=== PATIENT | female | born 1925 | race Caucasian/White ===

== ENCOUNTER 2016-07-09 18:23 | Emergency (ER) | payer MEDICARE, OTHER ==
[~2016-07-09] VITALS: Ht 167.6 cm; Wt 73.9 kg
[~2016-07-09 18:23] MED LIST: AMIO200T PO; ASPI-496 PO; CALC1CAP8 PO; CARV6.2512 PO; DIGO125T6 PO; FURO-92 PO; FURO20TA3 PO; LISI5TAB7 PO; LORA10TA72 PO; MELO-184 PO; MELO-190 PO; POLY17PO5 PO; SIMV20TA3 PO
[2016-07-09] MEDS ORDERED: SODIUM CHLORIDE FLUSH 10ML SYR IVF ONE (19:00)
[2016-07-09 19:16] LABS: HEMOGLOBIN 14.2 g/dL (11.7-16.4)
[2016-07-09] MEDS ORDERED: AMIO200T42 PO (19:22)
[2016-07-09] MEDS ORDERED: ASPI-650 PO (19:22)
[2016-07-09] MEDS ORDERED: IBUP200C8 PO (19:22)
[2016-07-09 19:26] LABS: BLOOD UREA NITROGEN 17 mg/dL (7-18)
[2016-07-09 19:28] LABS: ASPARTATE AMINO TRANSFERASE 45 U/L (15-37)
[2016-07-09 20:11] VITALS: BP 109/62
== END 2016-07-09 21:35 | disposition home or self-care (01) ==
LOC: ED 19:21
DX: S83.511A Sprain of anterior cruciate ligament of right knee, initial encounter (principal); M19.90 Unspecified osteoarthritis, unspecified site; I10 Essential (primary) hypertension; E78.5 Hyperlipidemia, unspecified; I48.0 Paroxysmal atrial fibrillation; I25.10 Atherosclerotic heart disease of native coronary artery without angina pectoris; Z86.718 Personal history of other venous thrombosis and embolism; X50.1XXA Overexertion from prolonged static or awkward postures, initial encounter; Y93.89 Activity, other specified; Y99.8 Other external cause status; Y92.89 Other specified places as the place of occurrence of the external cause
CPT/HCPCS: 36415; 80053; 85025; 85610; 99285

== ENCOUNTER 2016-12-01 10:18 | Emergency (ER) | payer MEDICARE, OTHER ==
[~2016-12-01] VITALS: Ht 160 cm; Wt 68.3 kg
[~2016-12-01 10:18] MED LIST changes: +AMIO200T42 PO; +ASPI-650 PO; +IBUP200C8 PO; -MELO-184 PO; -MELO-190 PO; +MELO15TA24 PO; +MELO7.5T31 PO
[2016-12-01 11:17] LABS: HEMATOCRIT 42.2 % (34.6-47.8); HEMOGLOBIN 13.7 g/dL (11.7-16.4); WHITE BLOOD COUNT 11.3 x10^3/uL (3.4-10)
[2016-12-01 11:26] LABS: ASPARTATE AMINO TRANSFERASE 25 U/L (15-37); BLOOD UREA NITROGEN 23 mg/dL (7-18)
[2016-12-01] MEDS ORDERED: TRAM50TA2 PO (12:07)
[2016-12-01] MEDS ORDERED: FEXO180T72 PO (12:08)
[2016-12-01] MEDS ORDERED: FEXO1TAB29 PO (12:08)
[2016-12-01] MEDS ORDERED: NAPR220C2 PO (12:09)
[2016-12-01 14:30] VITALS: BP 178/86
== END 2016-12-01 14:34 | disposition home or self-care (01) ==
LOC: ED 10:57
DX: R42 Dizziness and giddiness (principal); W01.0XXA Fall on same level from slipping, tripping and stumbling without subsequent striking against object, initial encounter; Y93.89 Activity, other specified; Y92.89 Other specified places as the place of occurrence of the external cause; Y99.8 Other external cause status
CPT/HCPCS: 36415; 70450; 80053; 81003; 82550; 83735; 85025; 93005; 99285

== ENCOUNTER 2017-01-02 08:52 | Inpatient (IN) | payer MEDICARE, OTHER ==
[~2017-01-02] VITALS: Ht 160 cm; Wt 72.5 kg
[~2017-01-02 08:52] MED LIST changes: +FEXO180T72 PO; +FEXO1TAB29 PO; +NAPR220C2 PO; +TRAM50TA2 PO
[2017-01-02] MEDS ORDERED: DILTIAZEM 125 MG in DEXTROSE 5% 100 ML IV SCH (09:13)
[2017-01-02] MEDS ORDERED: ERYT250C8 PO (09:25)
[2017-01-02] MEDS ORDERED: MULT-717 PO (09:25)
[2017-01-02 09:30] LABS: HEMATOCRIT 42.2 % (34.6-47.8); HEMOGLOBIN 13.8 g/dL (11.7-16.4)
[2017-01-02] MEDS ORDERED: DILTIAZEM 5 MG/ML, 5ML IV ONE (09:30)
[2017-01-02] MEDS ORDERED: SODIUM CHLORIDE FLUSH 10ML SYR IVF ONE (09:30)
[2017-01-02 09:41] LABS: BLOOD UREA NITROGEN 22 mg/dL (7-18)
[2017-01-02] MEDS ORDERED: DILTIAZEM 5 MG/ML, 5ML ONE (09:41)
[2017-01-02 09:48] LABS: ASPARTATE AMINO TRANSFERASE 23 U/L (15-37)
[2017-01-02] MEDS ORDERED: SODIUM CHLORIDE FLUSH 10ML SYR IVF PRN (11:00)
[2017-01-02 11:56] VITALS: BP 113/77
[2017-01-02] MEDS ORDERED: HYDROcodone/APAP 5/325 TABLET PO PRN (12:00)
[2017-01-02] MEDS ORDERED: GUAIFENESIN/DM 200-20MG, 10ML UDC PO PRN (12:00)
[2017-01-02] MEDS ORDERED: LABETALOL 5MG/ML, 20ML IVPush PRN (12:00)
[2017-01-02] MEDS ORDERED: ONDANSETRON ODT 4 MG PO PRN (12:00)
[2017-01-02] MEDS ORDERED: ONDANSETRON 2MG/ML, 2ML IVPush PRN (12:00)
[2017-01-02] MEDS ORDERED: POLYETHYLENE GLYCOL 17 GM PACKET PO PRN ×2 (12:00→12:30)
[2017-01-02] MEDS ORDERED: AMIODARONE 200 MG TABLET PO SCH ×2 (12:30→12:40)
[2017-01-02] MEDS ORDERED: POTASSIUM CHLORIDE 20 MEQ TAB.ER.PRT PO ONE (13:00)
[2017-01-02] MEDS ORDERED: FILTER 0.22 MICRON FOR AMIODARONE IV PRN (13:00)
[2017-01-02] MEDS ORDERED: AMIODARONE 150 MG in DEXTROSE 5% 100 ML IV ONE (13:00)
[2017-01-02] MEDS ORDERED: FUROSEMIDE 20 MG/2 ML IV ONE (13:00)
[2017-01-02] MEDS ORDERED: AMIODARONE 900 MG in DEXTROSE 5% 482 ML IV PRN (13:00)
[2017-01-02 14:55] VITALS: BP 107/68
[2017-01-02] MEDS: ENOXAPARIN 40 MG/0.4 ML SQ SCH (15:01)
[2017-01-02] MEDS: LISINOPRIL 5 MG TABLET PO SCH (15:37)
[2017-01-02 20:12] VITALS: BP 103/68
[2017-01-02] MEDS: SIMVASTATIN 20 MG TABLET PO SCH (22:11)
[2017-01-03 01:37] VITALS: BP 120/62
[2017-01-03 04:54] LABS: HEMATOCRIT 35.7 % (34.6-47.8); HEMOGLOBIN 11.8 g/dL (11.7-16.4); WHITE BLOOD COUNT 7.2 x10^3/uL (3.4-10)
[2017-01-03 05:06] LABS: BLOOD UREA NITROGEN 27 mg/dL (7-18)
[2017-01-03] MEDS ORDERED: FLU VACC QS2017-18 (36MOS+) UP/PF 0.5 ML IM-VACC ONE (05:30)
[2017-01-03] MEDS: SENNA/DOCUSATE TABLET PO SCH (07:38)
[2017-01-03] MEDS: AMIODARONE 200 MG TABLET PO SCH ×2 (08:42→16:52)
[2017-01-03] MEDS ORDERED: FILTER 0.22 MICRON FOR AMIODARONE IV PRN (09:00)
[2017-01-03] MEDS ORDERED: AMIODARONE 150 MG in DEXTROSE 5% 100 ML IV ONE (09:00)
[2017-01-03 09:05] VITALS: BP 137/79
[2017-01-03] MEDS: ASPIRIN 81 MG TABLET EC PO SCH (09:18)
[2017-01-03] MEDS: LISINOPRIL 5 MG TABLET PO SCH (09:18)
[2017-01-03] MEDS ORDERED: MIDAZOLAM 1 MG/ML, 5ML ONE (11:31)
[2017-01-03] MEDS ORDERED: FENTANYL PF 100 MCG/2ML ONE (11:32)
[2017-01-03] MEDS ORDERED: AMIODARONE 900 MG in DEXTROSE 5% 482 ML IV PRN (13:00)
[2017-01-03 13:28] VITALS: BP 121/74
[2017-01-03] MEDS ORDERED: FUROSEMIDE 20 MG/2 ML IV ONE (13:30)
[2017-01-03] MEDS ORDERED: POTASSIUM CHLORIDE 20 MEQ PACKET PO ONE (13:30)
[2017-01-03] MEDS: ENOXAPARIN 40 MG/0.4 ML SQ SCH (15:02)
[2017-01-03] MEDS: MULTIVITAMINS/MINERALS TABLET PO SCH (15:03)
[2017-01-03] MEDS: CALCIUM/VITAMIN D3 250-125 TABLET PO SCH (15:03)
[2017-01-03] MEDS: APIXABAN 5 MG TABLET PO SCH (16:52)
[2017-01-03 19:18] VITALS: BP 134/81
[2017-01-03] MEDS: SIMVASTATIN 20 MG TABLET PO SCH (20:42)
[2017-01-04 01:35] VITALS: BP 137/78
[2017-01-04 06:07] LABS: BLOOD UREA NITROGEN 30 mg/dL (7-18)
[2017-01-04 06:25] LABS: HEMATOCRIT 34.8 % (34.6-47.8); HEMOGLOBIN 11.3 g/dL (11.7-16.4)
[2017-01-04 08:31] VITALS: BP 147/75
[2017-01-04] MEDS: SENNA/DOCUSATE TABLET PO SCH (09:00)
[2017-01-04] MEDS: ASPIRIN 81 MG TABLET EC PO SCH (09:11)
[2017-01-04] MEDS: APIXABAN 5 MG TABLET PO SCH ×2 (09:11→22:16)
[2017-01-04] MEDS: MULTIVITAMINS/MINERALS TABLET PO SCH (09:11)
[2017-01-04] MEDS: LISINOPRIL 5 MG TABLET PO SCH (09:11)
[2017-01-04] MEDS: CALCIUM/VITAMIN D3 250-125 TABLET PO SCH (09:11)
[2017-01-04] MEDS: AMIODARONE 200 MG TABLET PO SCH (09:11)
[2017-01-04] MEDS: ENOXAPARIN 40 MG/0.4 ML SQ SCH (12:00)
[2017-01-04 14:30] VITALS: BP 128/69
[2017-01-04 19:00] VITALS: BP_SYST 160; BP_SYST 162; BP_DIAS 80; BP_DIAS 82
[2017-01-04] MEDS: SIMVASTATIN 20 MG TABLET PO SCH (22:16)
[2017-01-05 00:35] VITALS: BP 147/78
[2017-01-05 06:35] LABS: HEMATOCRIT 37.3 % (34.6-47.8); HEMOGLOBIN 12.3 g/dL (11.7-16.4); WHITE BLOOD COUNT 8.4 x10^3/uL (3.4-10)
[2017-01-05 06:38] LABS: DIFF TOTAL CELLS COUNTED 100 CELL DIFF
[2017-01-05 07:03] LABS: VERIFY COUNTS? YES
[2017-01-05 07:14] LABS: BLOOD UREA NITROGEN 25 mg/dL (7-18)
[2017-01-05 07:18] LABS: ASPARTATE AMINO TRANSFERASE 21 U/L (15-37)
[2017-01-05 07:38] VITALS: BP 150/74
[2017-01-05] MEDS: APIXABAN 5 MG TABLET PO SCH (08:18)
[2017-01-05] MEDS: LISINOPRIL 5 MG TABLET PO SCH (08:18)
[2017-01-05] MEDS: ASPIRIN 81 MG TABLET EC PO SCH (08:18)
[2017-01-05] MEDS: AMIODARONE 200 MG TABLET PO SCH (08:18)
[2017-01-05] MEDS: CALCIUM/VITAMIN D3 250-125 TABLET PO SCH (08:19)
[2017-01-05] MEDS: MULTIVITAMINS/MINERALS TABLET PO SCH (08:19)
[2017-01-05] MEDS: SENNA/DOCUSATE TABLET PO SCH (08:19)
[2017-01-05] MEDS ORDERED: APIX5TAB PO (11:42)
[2017-01-05] MEDS ORDERED: ASPI-621 PO (11:42)
[2017-01-05 14:30] VITALS: BP 155/67
== END 2017-01-05 17:30 | DRG 308 ==
LOC: ED 10:13 → EDIP 10:32 → 5SO 11:29
PROVIDERS: ADMIT Internal Medicine; ATTEND Internal Medicine
PROC: 5A2204Z Restoration of Cardiac Rhythm, Single (ICD-10-PCS; principal; 2017-01-03)
DX: I48.0 Paroxysmal atrial fibrillation (principal); J96.01 Acute respiratory failure with hypoxia; I50.41 Acute combined systolic (congestive) and diastolic (congestive) heart failure; E44.0 Moderate protein-calorie malnutrition; D68.69 Other thrombophilia; J98.11 Atelectasis; I48.92 Unspecified atrial flutter; D72.829 Elevated white blood cell count, unspecified; E78.5 Hyperlipidemia, unspecified; I25.10 Atherosclerotic heart disease of native coronary artery without angina pectoris; I11.0 Hypertensive heart disease with heart failure; Z88.0 Allergy status to penicillin; Z68.28 Body mass index [BMI] 28.0-28.9, adult; K44.9 Diaphragmatic hernia without obstruction or gangrene; K59.00 Constipation, unspecified; M17.0 Bilateral primary osteoarthritis of knee; Z79.01 Long term (current) use of anticoagulants; Z87.891 Personal history of nicotine dependence; Z96.642 Presence of left artificial hip joint
CPT/HCPCS: 36415; 71010; 80048; 80053; 82040; 82306; 83735; 83880; 84439; 84484; 85025; 85610; 85730; 90686; 92960; 93005; 93306; 96365; 96366; 96375; J1650; J0282; J1940; J7060

== ENCOUNTER 2017-03-14 09:15 | Inpatient (IN) | payer MEDICARE, OTHER ==
[~2017-03-14] VITALS: Ht 160 cm; Wt 76.1 kg
[~2017-03-14 09:15] MED LIST changes: +APIX5TAB PO; +ASPI-621 PO; +ERYT250C8 PO; +MULT-717 PO
[2017-03-14] MEDS ORDERED: SODIUM CHLORIDE FLUSH 10ML SYR IVF ONE (10:00)
[2017-03-14 10:12] LABS: HEMATOCRIT 33.8 % (34.6-47.8); WHITE BLOOD COUNT 8.9 x10^3/uL (3.4-10)
[2017-03-14 10:25] LABS: ASPARTATE AMINO TRANSFERASE 38 U/L (15-37); BLOOD UREA NITROGEN 31 mg/dL (7-18)
[2017-03-14 10:30] LABS: IS PT STATUS REG ER OR PRE ER? YES
[2017-03-14] MEDS ORDERED: METO-93 PO (10:31)
[2017-03-14] MEDS ORDERED: FUROSEMIDE 40 MG/4 ML ONE ×2 (10:58→17:27)
[2017-03-14] MEDS ORDERED: FUROSEMIDE 40 MG/4 ML IVPush ONE (11:00)
[2017-03-14] MEDS ORDERED: SODIUM CHLORIDE FLUSH 10ML SYR IVF PRN (11:30)
[2017-03-14] MEDS ORDERED: ONDANSETRON ODT 4 MG PO PRN (12:30)
[2017-03-14] MEDS ORDERED: LABETALOL 5MG/ML, 20ML IVPush PRN (12:30)
[2017-03-14] MEDS ORDERED: POLYETHYLENE GLYCOL 17 GM PACKET PO PRN ×2 (12:30)
[2017-03-14] MEDS ORDERED: ONDANSETRON 2MG/ML, 2ML IVPush PRN (12:30)
[2017-03-14] MEDS ORDERED: METOPROLOL TARTRATE 50 MG TABLET ONE (17:27)
[2017-03-14] MEDS ORDERED: ASPIRIN 81 MG TABLET CHEW ONE (17:28)
[2017-03-14] MEDS: FUROSEMIDE 40 MG/4 ML IV SCH (17:31)
[2017-03-14] MEDS: ASPIRIN 81 MG TABLET EC PO SCH (17:49)
[2017-03-14] MEDS: METOPROLOL SUCCINATE 50 MG TAB.ER.24H PO SCH (17:50)
[2017-03-14] MEDS: MULTIVITAMIN 1 TABLET PO SCH (17:50)
[2017-03-14] MEDS: CALCIUM/VITAMIN D3 250-125 TABLET PO SCH (17:50)
[2017-03-14 21:55] VITALS: BP 106/70
[2017-03-14] MEDS: SIMVASTATIN 20 MG TABLET PO SCH (23:34)
[2017-03-14] MEDS: APIXABAN 2.5 MG TABLET PO SCH (23:34)
[2017-03-15 01:01] VITALS: BP 112/72
[2017-03-15 08:41] VITALS: BP 105/71
[2017-03-15 09:00] VITALS: BP 92/55
[2017-03-15] MEDS: SENNA/DOCUSATE TABLET PO SCH (09:00)
[2017-03-15] MEDS: METOPROLOL SUCCINATE 50 MG TAB.ER.24H PO SCH (09:00)
[2017-03-15] MEDS: FUROSEMIDE 40 MG/4 ML IV SCH (09:20)
[2017-03-15] MEDS: APIXABAN 2.5 MG TABLET PO SCH ×2 (09:20→21:36)
[2017-03-15] MEDS: MULTIVITAMIN 1 TABLET PO SCH (09:20)
[2017-03-15] MEDS: ASPIRIN 81 MG TABLET EC PO SCH (09:20)
[2017-03-15 09:54] LABS: HEMATOCRIT 34.5 % (34.6-47.8); WHITE BLOOD COUNT 9.7 x10^3/uL (3.4-10)
[2017-03-15 10:03] LABS: BLOOD UREA NITROGEN 31 mg/dL (7-18)
[2017-03-15] MEDS ORDERED: PHARMACY MAY ADJ FOR RENAL FX MC PRN (11:30)
[2017-03-15] MEDS ORDERED: CEPHALEXIN 500 MG CAPSULE PO SCH (11:30)
[2017-03-15 15:00] VITALS: BP 100/60
[2017-03-15] MEDS: CALCIUM/VITAMIN D3 250-125 TABLET PO SCH (16:22)
[2017-03-15] MEDS: CEPHALEXIN 500 MG CAPSULE PO SCH ×2 (16:22→21:36)
[2017-03-15 20:13] VITALS: BP 99/65
[2017-03-15] MEDS: SIMVASTATIN 20 MG TABLET PO SCH (21:36)
[2017-03-16 01:53] VITALS: BP 112/74
[2017-03-16] MEDS: CEPHALEXIN 500 MG CAPSULE PO SCH ×4 (05:42→21:00)
[2017-03-16 07:25] VITALS: BP 126/77
[2017-03-16 09:33] LABS: HEMATOCRIT 35.7 % (34.6-47.8); HEMOGLOBIN 11.5 g/dL (11.7-16.4); WHITE BLOOD COUNT 9.3 x10^3/uL (3.4-10)
[2017-03-16 09:46] LABS: BLOOD UREA NITROGEN 32 mg/dL (7-18)
[2017-03-16] MEDS: CALCIUM/VITAMIN D3 250-125 TABLET PO SCH (09:52)
[2017-03-16] MEDS: METOPROLOL SUCCINATE 50 MG TAB.ER.24H PO SCH (09:52)
[2017-03-16] MEDS: ASPIRIN 81 MG TABLET EC PO SCH (09:52)
[2017-03-16] MEDS: SENNA/DOCUSATE TABLET PO SCH (09:52)
[2017-03-16] MEDS: APIXABAN 2.5 MG TABLET PO SCH (09:52)
[2017-03-16] MEDS: MULTIVITAMIN 1 TABLET PO SCH (09:52)
[2017-03-16] MEDS: FUROSEMIDE 40 MG/4 ML IV SCH (10:18)
[2017-03-16 13:22] VITALS: BP 120/67
[2017-03-16 19:44] VITALS: BP 128/84
[2017-03-16] MEDS: METOPROLOL TARTRATE 25 MG TABLET PO SCH (21:00)
[2017-03-16] MEDS: APIXABAN 5 MG TABLET PO SCH (21:00)
[2017-03-16] MEDS: SIMVASTATIN 20 MG TABLET PO SCH (21:00)
[2017-03-17 01:11] VITALS: BP 144/83
[2017-03-17 05:44] LABS: HEMATOCRIT 31.3 % (34.6-47.8); HEMOGLOBIN 10.1 g/dL (11.7-16.4); WHITE BLOOD COUNT 8.4 x10^3/uL (3.4-10)
[2017-03-17 05:48] LABS: BLOOD UREA NITROGEN 32 mg/dL (7-18)
[2017-03-17] MEDS: CEPHALEXIN 500 MG CAPSULE PO SCH ×4 (06:02→21:31)
[2017-03-17 06:51] VITALS: BP 114/70
[2017-03-17] MEDS ORDERED: METOPROLOL TARTRATE 25 MG TABLET PO SCH (09:00)
[2017-03-17] MEDS: SENNA/DOCUSATE TABLET PO SCH (09:00)
[2017-03-17] MEDS: METOPROLOL TARTRATE 25 MG TABLET PO SCH ×2 (09:39→21:31)
[2017-03-17] MEDS: ASPIRIN 81 MG TABLET EC PO SCH (09:39)
[2017-03-17] MEDS: MULTIVITAMIN 1 TABLET PO SCH (09:39)
[2017-03-17] MEDS: FUROSEMIDE 40 MG/4 ML IV SCH (09:39)
[2017-03-17] MEDS: APIXABAN 5 MG TABLET PO SCH ×2 (09:40→21:32)
[2017-03-17] MEDS: CALCIUM/VITAMIN D3 250-125 TABLET PO SCH (09:40)
[2017-03-17 12:26] VITALS: BP 135/79
[2017-03-17 13:23] LABS: IS PT STATUS REG ER OR PRE ER? NO
[2017-03-17 19:10] VITALS: BP 100/65
[2017-03-17] MEDS ORDERED: ACETAMINOPHEN 325 MG TABLET PO PRN (19:30)
[2017-03-17] MEDS: SIMVASTATIN 20 MG TABLET PO SCH (21:32)
[2017-03-18 03:25] VITALS: BP 102/64
[2017-03-18] MEDS: CEPHALEXIN 500 MG CAPSULE PO SCH ×4 (05:07→22:04)
[2017-03-18 05:15] LABS: BLOOD UREA NITROGEN 30 mg/dL (7-18)
[2017-03-18 05:22] LABS: IS PT STATUS REG ER OR PRE ER? NO
[2017-03-18 08:25] VITALS: BP 117/75
[2017-03-18] MEDS: FUROSEMIDE 40 MG/4 ML IV SCH (10:06)
[2017-03-18] MEDS: CALCIUM/VITAMIN D3 250-125 TABLET PO SCH (10:06)
[2017-03-18] MEDS: SENNA/DOCUSATE TABLET PO SCH (10:07)
[2017-03-18] MEDS: METOPROLOL TARTRATE 25 MG TABLET PO SCH ×2 (10:07→22:03)
[2017-03-18] MEDS: ASPIRIN 81 MG TABLET EC PO SCH (10:07)
[2017-03-18] MEDS: MULTIVITAMIN 1 TABLET PO SCH (10:09)
[2017-03-18] MEDS ORDERED: METO25TA35 PO (12:56)
[2017-03-18] MEDS ORDERED: CEPH-376 PO (12:56)
[2017-03-18] MEDS ORDERED: LISI5TAB7 PO (12:56)
[2017-03-18] MEDS ORDERED: APIX2.5T PO (12:56)
[2017-03-18] MEDS ORDERED: POTA20PA25 PO (12:58)
[2017-03-18 14:41] VITALS: BP 110/70
[2017-03-18 20:45] VITALS: BP 97/62
[2017-03-18] MEDS: APIXABAN 2.5 MG TABLET PO SCH (22:04)
[2017-03-18] MEDS: SIMVASTATIN 20 MG TABLET PO SCH (22:05)
[2017-03-19 02:25] VITALS: BP 107/62
[2017-03-19 05:26] LABS: ASPARTATE AMINO TRANSFERASE 20 U/L (15-37); BLOOD UREA NITROGEN 30 mg/dL (7-18); HEMATOCRIT 32.4 % (34.6-47.8); HEMOGLOBIN 10.5 g/dL (11.7-16.4); WHITE BLOOD COUNT 6.5 x10^3/uL (3.4-10)
[2017-03-19] MEDS: CEPHALEXIN 500 MG CAPSULE PO SCH ×2 (05:30→11:32)
[2017-03-19 06:45] VITALS: BP 97/61
[2017-03-19] MEDS: SENNA/DOCUSATE TABLET PO SCH (09:02)
[2017-03-19] MEDS: MULTIVITAMIN 1 TABLET PO SCH (09:42)
[2017-03-19] MEDS: ASPIRIN 81 MG TABLET EC PO SCH (09:42)
[2017-03-19] MEDS: CALCIUM/VITAMIN D3 250-125 TABLET PO SCH (09:42)
[2017-03-19] MEDS: APIXABAN 2.5 MG TABLET PO SCH (09:42)
[2017-03-19] MEDS: FUROSEMIDE 40 MG/4 ML IV SCH (09:42)
[2017-03-19 09:50] VITALS: BP 96/58
[2017-03-19 10:07] VITALS: BP 104/68
[2017-03-19] MEDS: METOPROLOL TARTRATE 25 MG TABLET PO SCH (10:10)
[2017-03-19 15:14] VITALS: BP 108/75
== END 2017-03-19 17:22 | disposition home or self-care (01) | DRG 682 ==
LOC: ED 11:04 → EDIP 11:05 → ED 11:23 → 5SO 21:25 → 4EST 03-15 18:43 → 4WST 03-17 13:12
PROVIDERS: ADMIT Hospitalist; ATTEND Hospitalist
DX: N17.9 Acute kidney failure, unspecified (principal); J96.01 Acute respiratory failure with hypoxia; I50.43 Acute on chronic combined systolic (congestive) and diastolic (congestive) heart failure; D68.69 Other thrombophilia; E44.1 Mild protein-calorie malnutrition; I27.20 Pulmonary hypertension, unspecified; I11.0 Hypertensive heart disease with heart failure; I48.91 Unspecified atrial fibrillation; Z88.0 Allergy status to penicillin; D64.9 Anemia, unspecified; Z68.29 Body mass index [BMI] 29.0-29.9, adult; E78.5 Hyperlipidemia, unspecified; I25.10 Atherosclerotic heart disease of native coronary artery without angina pectoris; I34.0 Nonrheumatic mitral (valve) insufficiency; I44.7 Left bundle-branch block, unspecified; M17.0 Bilateral primary osteoarthritis of knee; Z79.01 Long term (current) use of anticoagulants; Z79.899 Other long term (current) drug therapy; Z87.891 Personal history of nicotine dependence; Z96.642 Presence of left artificial hip joint; Z99.3 Dependence on wheelchair
CPT/HCPCS: 36415; 71010; 80048; 80053; 82040; 83735; 83880; 84484; 85025; 85610; 85730; 93005; 93306; 96374; 96376; J1940